=== PATIENT | female | born 1990 | race Caucasian/White ===

== ENCOUNTER 2017-08-27 08:24 | Outpatient (CLI) | payer BC ==
[~2017-08-27] VITALS: Ht 160 cm; Wt 101.8 kg
[2017-08-27 08:30] VITALS: BP 134/64; PULSE 78; TEMP 97.8
[2017-08-27 08:41] VITALS: BP 134/64; PULSE 78; TEMP 97.8
[2017-08-27 09:15] VITALS: BP 113/64; PULSE 56
[2017-08-27 09:30] VITALS: PULSE 56; TEMP 97.8
[2017-08-27 10:00] VITALS: BP 116/61; PULSE 75
[2017-08-27 10:30] VITALS: BP 123/64; PULSE 69
== END 2017-08-27 10:58 | disposition home or self-care (01) ==
LOC: LDRO 08:24
DX: O32.1XX0 Maternal care for breech presentation, not applicable or unspecified (principal); Z3A.39 39 weeks gestation of pregnancy
CPT/HCPCS: J3105

== ENCOUNTER 2017-09-04 07:32 | Inpatient (IN) | payer BC ==
[~2017-09-04] VITALS: Ht 162.6 cm; Wt 101.8 kg
[2017-09-04] VITALS (39 sets, daily range): BP systolic 99–137; BP diastolic 58–96; PULSE 54–108; TEMP 97.5–98
[~2017-09-04 07:32] MED LIST: BIRTH CONTROL MED PO
[2017-09-04 08:35] LABS: BASO % 0.4 % (0.0-2.0); EOS # 0.1 (0.0-0.7); EOS % 1.3 % (0-4.0); GRAN # 6.5 (1.4-6.5); GRAN % 68.8 % (42.2-75.2); HEMATOCRIT 37.5 % (37.0-47.0); HEMOGLOBIN 12.6 g/dl (12.5-16.0); LYMPH % 21.6 % (20.0-51.0); MEAN CELL VOLUME 91 fl (80.0-100.0); MEAN CORPUSCULAR HEMOGLOBIN 31 pg (27.0-31.0); MEAN CORPUSCULAR HGB CONC 34 g/dl (33.0-37.0); MEAN PLATELET VOLUME 11.2 fl (7.4-10.4); MONO # 0.7 (0.1-0.6); MONO % 7.3 % (1.7-9.3); PLATELET COUNT 236 K/mm3 (130-400); RED BLOOD COUNT 4.11 M/mm3 (4.10-5.30)
[2017-09-05 05:15] VITALS: BP 116/62; PULSE 75; TEMP 97.7
[2017-09-05 07:26] LABS: HEMATOCRIT 31.5 % (37.0-47.0); HEMOGLOBIN 10.2 g/dl (12.5-16.0)
[2017-09-05 08:00] VITALS: BP 124/71; PULSE 67; TEMP 97.6
[2017-09-05] MEDS ORDERED: PERCOCET 325 MG1 TA2 PO (08:37)
[2017-09-05] MEDS ORDERED: MOTRIN 800800 MG/TAB PO (08:37)
[2017-09-05 16:00] VITALS: BP 130/65; PULSE 76; TEMP 97.8
[2017-09-05 20:00] VITALS: BP 130/66; PULSE 78; TEMP 98.1
[2017-09-06 01:00] VITALS: BP 128/60; PULSE 80; TEMP 98.2
[2017-09-06 07:29] VITALS: BP 122/56; PULSE 75
[2017-09-06] MEDS ORDERED: IBU600 MG PO (08:48)
[2017-09-06] MEDS ORDERED: PERCOCET 325 MG1 TA2 PO (08:48)
== END 2017-09-06 15:20 | disposition home or self-care (01) | DRG 765 ==
LOC: LDRO 07:32 → OB 07:39 → LDR 07:39 → OB 13:01
PROVIDERS: Obstetrics & Gynecology
PROC: 10D00Z1 Extraction of Products of Conception, Low, Open Approach (ICD-10-PCS; principal; 2017-09-04)
DX: O48.0 Post-term pregnancy (principal); O45.93 Premature separation of placenta, unspecified, third trimester; O76 Abnormality in fetal heart rate and rhythm complicating labor and delivery; O34.03 Maternal care for unspecified congenital malformation of uterus, third trimester; Q51.3 Bicornate uterus; Z3A.41 41 weeks gestation of pregnancy; Z37.0 Single live birth
CPT/HCPCS: J0171; J0330; J0690; J1885; J2270; J2400; J2405; J2590; J2704; J2710; J2795; J3010; J7120

== ENCOUNTER → 2017-09-10 | Outpatient (CLI) | payer BC ==
[~2017-09-10] MED LIST changes: +IBU600 MG PO; +MOTRIN 800800 MG/TAB PO; +PERCOCET 325 MG1 TA2 PO
== END ==
LOC: LAC 10:15
DX: Z39.1 Encounter for care and examination of lactating mother (principal); Z71.89 Other specified counseling